=== PATIENT | female | born 1965 | race Two or more races ===

== ENCOUNTER 2016-12-02 14:23 | Emergency (ER) | payer SELFPAY ==
--- NOTE | ~2016-12-02 | CR90 ---
[facility] A Service of [facility] & [facility] / [facility] RADIOLOGY TEXT RESULTS PATIENT: SAMANTHA ESCOBEDO LOCATION: CFTX : 69 UNIT #: [id number] AGE: [address]: Berna Calero SEX: F ORDER DR: [id number] [facility] [address] [place], [place] [address] [id number] MR#: [id number] #: [id number] NAME: SAMANTHA ESCOBEDO : 1965 SEX: F STUDY DATE/TIME: 12/02/2016 14:21 UNIT: [facility] ROOM: STUDY DESCRIPTION: CR Elbow 2 View Lt Attending Physician: Berna Calero P.A.-C. Ordering Physician: Berna Calero P.A.-C. Primary Care Physician: No Primary Care Physician MEDICAL IMAGING REPORT This report is preliminary unless electronic signature is present EXAM Left elbow series 12/02/2016 HISTORY Trauma, left arm has been splinted since injury in [place]. 11/22/2016. Fell on arm. Fracture. AP, lateral and oblique radiographs of the left elbow are presented. FINDINGS Assessment of the elbow is significantly degraded secondary to artifact from splinting material overlying the distal arm and forearm. The lateral view suggests a fracture through the coronoid process of the ulna. This is not well demonstrated on the other views. The fracture may be distracted by up to about 5 mm on the basis of the lateral view. The fracture fragment probably measures 6-7 mm on the lateral view. Fracture is incompletely evaluated on the basis of this examination alone. No other fractures are suggested. The elbow joint is normally located. If the splint can be removed, reevaluation with additional images after splint removal would be useful. If it would assist in management, CT could be considered but there may be significant artifact on CT from the splinting material. No soft tissue defect, subcutaneous air or radiodense foreign body is seen. There is a suggestion of some soft tissue swelling anterior aspect of the elbow. Dictated by... Luis Acosta M.D. THIS IS AN ELECTRONICALLY VERIFIED REPORT Luis Acosta M.D. at 12/02/2016 6:37 PM Heladio TD: 12/02/2016 17:26 [facility]. [facility] A Service of [facility] & [facility] / [facility] RADIOLOGY TEXT RESULTS PATIENT: SAMANTHA ESCOBEDO LOCATION: [facility] : 69 UNIT #: [id number] AGE: [address]: Berna Calero SEX: F ORDER DR: PRIYA #: [id number] MEDICAL IMAGING REPORT Page 1 of 1 COPY
== END 2016-12-02 15:35 | disposition home or self-care (01) ==
LOC: CFTX 14:23
DX: S52.042A Displaced fracture of coronoid process of left ulna, initial encounter for closed fracture (principal); X58.XXXA Exposure to other specified factors, initial encounter; Y92.009 Unspecified place in unspecified non-institutional (private) residence as the place of occurrence of the external cause
CPT/HCPCS: 29260; 73070; 99283

== ENCOUNTER 2017-01-22 11:28 | Emergency (ER) | payer SELFPAY | END 2017-01-22 11:52 | disposition home or self-care (01) | LOC: CED 11:28 → CFTX 11:28 | DX: L50.9 Urticaria, unspecified (principal); Z90.710 Acquired absence of both cervix and uterus | CPT/HCPCS: 99282 ==